=== PATIENT | female | born 1955 | race Caucasian/White ===

== ENCOUNTER 2016-10-01 10:37 | Emergency (ER) | payer BC ==
[2016-10-01 11:00] VITALS: BP 176/105; BMI 28.3
--- NOTE | 2016-10-01 11:41 | DR.HTN ---
HPI - Time Seen Time seen: 11:25 - Primary Care Physician Primary Care Physician: SHANIKA - HPI Comment HPI Comment: She developed a landry on Tuesday and noted her bp to be 154/85; she started checking her bp and continued to check numerous times since then with readings up to 160s/110s; she called her medicaid service coordinator but wasn't able to get through; her internest told her to come here; she admits to some nebulous chest discomfort for the past several days but no n/v; the headache has resolved; she continues to take metoprolol er 25 bid as previously prescribed; she had not been checking her bp prior to this week; she feels generally well otherwise. - Complaints Chief Complaint:: HIGH BLOOD PRESSURE ALL THIS WEEK WITH NO RELIEF. HAS TRIED TO GET INTO PMD AND INTO CARDIOLOGY WITH NO SUCESS. Self Treatment fo Chief Complaint: TAKING HOME MEDS - Source History Provided: Patient, Family Member - Mode of Arrival Mode of Arrival: Ambulatory - Timing Onset of Chief Complaint: 09/29/16 - Severity What was the maximum recorded B/P?: 184/119 - Context Treatment of HTN Prior to Arrival: Taking meds as prescribed - Associated Signs and Symptoms HTN Associated Signs and Symptoms: Headache PMH - PMH Past Medical History: Yes Past Medical History: Depression, Dyslipidemia, GERD, Hypertension Past Surgical History: Yes Surgical History: Appendectomy, Cholecystectomy - Family History History of Family Medical Conditions: Yes Family Medical History: Diabetes Mellitus, Cancer, [place], Coronary Artery Disease, Sudden Cardiac , Hypertension - Social History Type of Tobacco Use: None Does any household member use tobacco: No Alcohol Use: None Do you use any recreational Drugs:: No Lives With: Family Lives Where: Home - infectious screening In the last 2 months have you had wt loss of >10#?: NO Have you had fever, night sweats or hemotysis?: No Have you traveled outside the country in the last 6 months?: No Isolation: Standard ROS - Review of Systems Constitutional: No Symptoms Reported Eyes: No Symptoms Reported ENTM: No Symptoms Reported Respiratoy: No Symptoms Reported Cardiovascular: See HPI Genitourinary: No Symptoms Reported Neurological: No Symptoms Reported Musculoskeletal: Hip (right extending down behind right thigh) Endocrine: No Symptoms Reported Psychiatric: No Symptoms Reported PE - Vital Signs Vitals: Temperature 97.6 F Pulse Rate 61 Respiratory Rate 14 Blood Pressure 176/105 O2 Sat by Pulse Oximetry 98 - General Limitations: No Limitations General Appearance: Alert, In No Apparent Distress - Head Head Exam: Normal Inspection - Eyes Eye exam: Normal Appearance Pupils: Regular, Round: Bilateral - ENT ENT Exam: Normal Exam - Neck Neck Exam: Normal Inspection - Chest Chest Inspection: Normal Inspection - Respiratory Respiratory Exam: Normal Lung Sounds Bilat Respiratory Exam: Bilateral Clear to Auscultation - Cardiovascular Cardiovascular Exam: Regular Rate - Abdominal Exam Abdominal Exam: Normal Inspection - Extremities Extremities Exam: Normal Inspection - Neurologic Neurological Exam: Alert, Oriented X3 - Psychiatric Psychiatric Exam: Normal Affect - Skin Skin Exam: Warm ROR - EKG [place]: Normal Rhythm: NSR Block: None Hypertrophy: None ST: Normal - Diagnosis Discharge Problem: Hypertension Qualifiers: Hypertension type: essential hypertension Qualified Code(s): I10 - Essential ( primary) hypertension Chest pain Qualifiers: Chest pain type: other chest pain Qualified Code(s): R07.89 - Other chest pain - Discharge Plan Disposition: 01 HOME, SELF-CARE Condition: Stable Prescriptions: Metoprolol Succinate Ext Rel [TOPROL XL 25 MG *] 50 mg PO BID #60 tabsr - Follow ups/Referrals Follow ups/Referrals: Gokul Grullon V. [Primary Care Provider] - 3 days - Instructions Instructions: Hypertension, [id number]
== END 2016-10-01 11:58 | disposition home or self-care (01) ==
LOC: ER 10:37 → MERGE 10:37 → ER 11:58
DX: R07.89 Other chest pain (principal); I10 Essential (primary) hypertension
CPT/HCPCS: 93005; 93010; 99281; 99282

== ENCOUNTER → 2017-06-06 | Outpatient (CLI) | payer BC ==
[2016-10-01 14:17] VITALS: BP 176/105
--- NOTE | 2017-06-08 13:32 | MG ---
Examination: Bilateral screening mammogram. Clinical history: Routine screening. Technique: Digital CC and MLO views of both breasts were obtained. Computer aided detection analysis was performed and used during the interpretation. Comparison: 04/28/2016. Findings: The breasts are composed of scattered fibroglandular densities. Benign-appearing calcifications are n oted in the left breast. No suspicious mass, area of architectural distortion or suspicious cluster of microcalcifications is noted. Impression: 1. No mammographic evidence of malignancy. BI-RADS category 2-benign findings. Recommend routine annual screening mammogram. Diagnostic CAD was utilized and reviewed. * 0 (ZERO) - ASSESSMENT INCOMPLETE; ADDITIONAL IMAGING IS NEEDED. * 0C - ASSESSMENT INCOMPLETE, NEEDS ADDITIONAL IMAGING EVALUATION AND/OR PRIOR MAMMOGRAMS FOR COMPARI SON. * 1/1 (ONE) - NEGATIVE. * 2/II (TWO) - BENIGN FINDINGS. * 3/III (THREE) - PROBABLY BENIGN FINDING; SHORT INTERVAL FOLLOW-UP SUGGESTED. * 4/IV (FOUR) - SUSPICIOUS ABNORMALITY; BIOPSY SHOULD BE CONSIDERED. * 5/V - HIGHLY SUSPICIOUS OF MALIGNANCY; BIOPSY SHOULD BE PERFORMED. * 6/IV - KNOWN BIOPSY PROVEN MALIGNANCY-APPROPRIATE ACTION SHOULD BE TAKEN. A NEGATIVE X-RAY REPORT SHOULD NOT DELAY BIOPSY IF A DOMINANT OR CLINICALLY SUSPICIOUS MASS IS PRESENT; 4 TO 8 PERCENT OF CANCERS ARE NOT IDENTIFIED BY X-RAY. A NEGATIVE REPORT MAY REINFORCE THE CLINICAL IMPRESSION. ADENOSIS AND DENSE BREASTS MAY OBSCURE AN UNDERLYING NEOPLASM. Reported By:
== END ==
LOC: RAD 09:39
DX: Z12.31 Encounter for screening mammogram for malignant neoplasm of breast (principal)
CPT/HCPCS: 77067